=== PATIENT | female | born 1990 | race Hispanic/Latino ===

== ENCOUNTER 2017-03-05 06:21 | Inpatient (IN) | payer MEDICAID ==
[~2017-03-05] VITALS: Ht 158.8 cm; Wt 75.3 kg
[2017-03-05] MEDS ORDERED: Lactated Ringer's 1,000 ML IV PRN (06:58)
[2017-03-05] MEDS ORDERED: Oxytocin 10 Unit/mL Inj IM PRN ×2 (07:00→09:45)
[2017-03-05] MEDS ORDERED: Sodium Chloride LOK Flush 10 mL Syringe IVFLUSH PRN (07:00)
[2017-03-05] MEDS ORDERED: Oxytocin 30 Units/500 mL LR 30 UNITS in IV Premix 1 EACH IV PRN ×2 (07:00→09:45)
[2017-03-05] MEDS ORDERED: Methylergonovine 0.2 mg/mL Inj IM PRN ×2 (07:00→09:45)
[2017-03-05] MEDS ORDERED: Carboprost 250 mCg/mL Inj IM PRN ×2 (07:00→09:45)
[2017-03-05] MEDS ORDERED: Hemorrhage Kit, Post Partum XX ONE ×2 (07:00→09:45)
[2017-03-05] MEDS ORDERED: fentaNYL-PF 50 mCg/mL 2 mL Inj IVPUSH PRN (07:00)
[2017-03-05 07:18] LABS: Mean Corpuscular Hemoglobin 27.4 pg (27.0-35.0); Mean Corpuscular Volume 83.5 fL (81-100)
--- NOTE | 2017-03-05 08:03 | PCM.HPOB ---
Subjective Date of Service: March 05, 2017 Referring Provider: Admitting Physician: Bull Robertson MD Primary Care Physician: Bull Robertson MD Attending Physician: Bull Robertson MD Chief Complaint mike every 5 min at term History of Present History of Present Illness 26 yrs old, at 39 wk 5 d gestational age by LMP AUNDREA consistent with a 10 wk u/s, admitted this morning for active labor at term; pt reported mike started early this morning, was mike every 10 min by 3 AM, and was mike every 5 min by 6 AM. Initial exam revealed that she was 6 cm dilated. care with Dr. Robertson at [facility]; labs: O pos, RPR NR , Rubella immune, HBsAg neg, HIV neg, GC/CT neg, quad screen OK, Glucola OK, GBS neg. Hct 32.3 @25 wks and iron supplement was started. Sister in peripartum period (?clot); hypercoagulation panel neg for patient. is complicated by trimester cholestasis with generalized pruritus. OB History: (3), Para (2) Past Medical History Obstetrical History: Normal vaginal deliveries at term: 9 yrs ago and 12 yrs ago. Hx Tobacco Use: No Hx Alcohol Use: No Hx Substance Use: No Past Family History Living Arrangement: with Family Genetic Screening/Counseling Genetic Screening/Counseling: Negative Review of Systems ROS contraction pain; no other complaints. Allergy Coded Allergies: No Known Allergies (Verified Allergy, Unknown, 10/29/04) Uncoded Allergies: No Known Allergies (Allergy, Unknown, 10/29/04) Exam Vital Signs reviewed, normal. Exam category 1 tracing. Constitutional: Well-developed, Well-nourished, Normal habitus HEENT: Atraumatic Lungs: Clear to Auscultation Heart: Exam Unremarkable, Regular Rate/Rhythm, Normal S1, Normal S2, No Murmurs /Rubs/Gallops Abdomen: Gravid Extremities: Warm, No Edema Neurological/Psychiatric: Alert, Oriented X3, Cooperative Neuro: Grossly Neurologically Intact Labs/Diagnostics Labs Hgb=12.1; jxi=160 Maternal Blood Type: O Group B Strep Results: Negative OB Intrapartum Assessment/Plan Assessment Active labor at term; cholestasis; GBS negative. Anticipate normal delivery. Edita Hooper MD March 05, 2017 08:03
[2017-03-05] MEDS: Lactated Ringer's 1,000 ML IV SCH (09:43)
[2017-03-05] MEDS ORDERED: Witch Hazel-Glycerin Pads TOPICAL PRN (09:45)
[2017-03-05] MEDS ORDERED: Benzocaine (Dermoplast) 20% 60 Gm Spray TOPICAL PRN (09:45)
[2017-03-05] MEDS ORDERED: LANOlin HPA 7 Gm Ointment TOPICAL PRN (09:45)
--- NOTE | 2017-03-05 09:56 | PCM.OBVAG ---
Vaginal Delivery Date of Service March 05, 2017 Pre Operative Diagnosis Pre Operative Diagnosis term in active labor; cholestasis. Post Operative Diagnosis Post Operative Diagnosis Normal vaginal delivery at term; resolving cholestasis Procedure Procedure: AROM at 0827, produced clear fluid; dilation completed at 0859 AM. Normal vaginal delivery at 0913 today after effective push; head position: TAMICA; neuchal cord x 1, reduced prior to delivery; Apg=7/9; pv=3285 g; placenta delivered intact with 3-v cord at 0918; 2nd degree midline tear repaired using 3 -O vicryl sutures after local lidocaine injection; estimated blood loss~350 ml. Both the mother and the remained in stable conditions after the delivery. Health Science Specialist/Problem Manager Provider and Problem Manager: Edita Hooper MD Indication for Procedure Induction: Active labor Findings Obstetrical Findings: (Male), Cord (3 Vessel), Weight ( 3575 grams) Blood Loss & Administration Estimated Blood Loss: 350 Post Procedure Plan Post delivery Condition: Mom stable, Baby stable to nursery Edita Hooper MD March 05, 2017 09:56
[2017-03-05] MEDS: HYDROcodone-APAP 5-325 mg Tablet PO PRN (19:56)
[2017-03-06] MEDS: HYDROcodone-APAP 5-325 mg Tablet PO PRN (00:44)
[2017-03-06 07:29] LABS: Mean Corpuscular Volume 86.1 fL (81-100)
--- NOTE | 2017-03-06 08:22 | PCM.DIOB ---
Obstetrical Disch Instruction Date of Service: March 06, 2017 Dates of Hospitalization Date of Hospital Admission March 05, 2017 at 06:45 Providers Admitting Physician: Bull Robertson MD Primary Care Physician: Bull Robertson MD Attending Physician: Bull Robertson MD Discharge Diagnosis Problems: (1) Normal delivery Status: Acute ICD Code: O80 (2) Anemia, Status: Acute ICD Code: O90.81 Diet Discharge Diet: No restrictions Activity Discharge Activity-General: Pelvic Rest for 6 weeks Dressing and Incisional Care Hygiene: May shower, Perineal care, Sitz bath, Dermoplast spray, Witch Mayte pads, Ice Additional Instructions Discharge Instructions iron, PNVs, ibuprofen, DSS all faxed electronically to [facility] by Dr. Robertson using the [facility] electronic medical record Follow Up Plan Follow-up Provider (F9): Bull Robertson MD Follow-up appointment: Weeks (6) Call your provider for: Fever or Chills, Shortness of breath, Heavy vaginal bleeding, Epigastric pain, Excessive constipation, Vaginal discomfort, Red painful breasts (swollen, painful leg) Bull Robertson MD March 06, 2017 08:22
[2017-03-06] MEDS: Lactated Ringer's 1,000 ML IV SCH (08:47)
[2017-03-06 10:27] VITALS: BP 102/59; PULSE 75
--- NOTE | 2017-03-08 17:02 | DIS ---
[address] [address] DISCHARGE SUMMARY PATIENT: PATITO MORENO : 1990 MR#: [id number] ADMIT: 03/05/2017 JOB ID: [id number] DIS: 03/06/2017 ADMIT DIAGNOSES: 3, para 2, term, active labor. DISCHARGE DIAGNOSES: 1. 3, now para 3, status post normal spontaneous vaginal delivery, no complications. 2. Anemia. HOSPITAL COURSE: For details of admission and delivery please see notes by Dr. Hooper. Briefly, the patient came in, in spontaneous labor, uncomplicated vaginal delivery. she did well with good p.o. intake, ambulating without problems. She had normal bowel and bladder function. Normal lochia. Pain was well controlled. EXAM: On day of discharge, vital signs are stable. She is afebrile in no acute distress. Pleasant, cooperative. Cardiovascular: Regular rate and rhythm. S1-S2 heard. No murmurs, gallops, or rubs. Lungs: Clear to auscultation bilaterally without crackles, rhonchi, wheezes. Abdomen is soft, nontender. Uterus is soft, does firm somewhat with massage though it is about three fingerbreadths above umbilicus. Lower extremities are without edema. hematocrit is 29.7. DISCHARGE INSTRUCTIONS: Patient discharged home with baby. She is to follow up in six weeks with Dr. Robertson. vitamins, ibuprofen, docusate, and iron were all faxed to the [facility] outpatient pharmacy. Usual potential complications of the peripartum period were reviewed with the patient and emphasis placed on how to access to care if those occur and to manage those problems.
== END 2017-03-06 13:00 | disposition home or self-care (01) | DRG 560 ==
LOC: FBCO 06:21 → FBC 06:45
PROVIDERS: ADMIT Family Medicine; ATTEND Family Medicine
PROC: 10E0XZZ Delivery of Products of Conception, External Approach (ICD-10-PCS; principal; 2017-03-05)
PROC: 0KQM0ZZ Repair Perineum Muscle, Open Approach (ICD-10-PCS; 2017-03-05)
PROC: 10907ZC Drainage of Amniotic Fluid, Therapeutic from Products of Conception, Via Natural or Artificial Opening (ICD-10-PCS; 2017-03-05)
DX: O26.62 Liver and biliary tract disorders in childbirth (principal); K83.1 Obstruction of bile duct; Z3A.39 39 weeks gestation of pregnancy; Z37.0 Single live birth; O70.1 Second degree perineal laceration during delivery